=== PATIENT | male | born 1990 | race Caucasian/White ===

== ENCOUNTER 2016-07-23 21:56 | Emergency (ER) | payer BC ==
[2016-07-23 22:31] VITALS: BP 107/70; PULSE 70; RESP 14; TEMP 98.6; O2SAT 98
[2016-07-23] MEDS ORDERED: Albuterol 0.083% Inhal Sol (2.5 mg/3 mL) UD IH STA (23:09)
[2016-07-23] MEDS ORDERED: Sodium Chloride 0.9% 1,000 ML IV ONE (23:09)
[2016-07-23] MEDS ORDERED: Clindamycin 600mg/50ml D5W 600 MG/50 ML VIAL IVPB ONE (23:24)
[2016-07-23] MEDS ORDERED: Sodium Chloride 0.9% 1,000 ML ONE (23:24)
[2016-07-23] MEDS ORDERED: Albuterol 0.083% Inhal Sol (2.5 mg/3 mL) UD ONE (23:24)
[2016-07-23] MEDS ORDERED: Clindamycin 600mg/50ml D5W 600 MG/50 ML VIAL IVPB STA (23:25)
[2016-07-23 23:33] LABS: BASO # 0.1 K/uL (0.0-0.2); EOS # 0.5 K/uL (0.0-0.7); EOS % 4.2 % (0.0-4.0); HEMATOCRIT 41.8 % (35.0-51.0); LYMPH # 2.3 K/uL (1.0-4.3); LYMPH % 18.3 % (20.0-40.0); MEAN CORPUSCULAR HEMOGLOBIN 29.2 pg (27.0-31.0); MEAN CORPUSCULAR HGB CONC 33.6 g/dL (33.0-37.0); MEAN PLATELET VOLUME 8.4 fL (7.2-11.7); MONO % 7.9 % (0.0-10.0); RED CELL DISTRIBUTION WIDTH 13.2 % (11.5-14.5); WHITE BLOOD COUNT 12.5 K/uL (4.8-10.8)
--- NOTE | 2016-07-24 00:32 | C.PDOC ---
History Of Present Illness 26 year old patient presents to the ED complaining of pain and swelling to the right thigh for the past 3 days. Patient states there is a bump there. He tried to squeeze it, but the redness worsened. Patient denies any fever or vomiting. Time Seen by Provider: 07/23/16 22:39 Chief Complaint (Nursing): Abnormal Skin Integrity History Per: Patient History/Exam Limitations: no limitations Onset/Duration Of Symptoms: Days (3) Current Symptoms Are (Timing): Still Present Quality Of Symptoms: Painful, Draining Severity: Mild Pain Scale Rating Of: 3 Recent travel outside of the [place]: No Past Medical History Reviewed: Historical Data, Nursing Documentation, Vital Signs Vital Signs: Last Vital Signs Temp 98.6 F 07/23/16 22:26 Pulse 70 07/23/16 22:26 Resp 14 07/23/16 22:26 BP 107/70 07/23/16 22:26 Pulse Ox 98 07/24/16 02:39 - Medical History PMH: Asthma - [facility] Procedures INJECT/INFUSE NEC (06/07/13) NEBULIZER THERAPY (06/07/13) Family History: States: Unknown Family Hx - Social History Hx Alcohol Use: No Hx Substance Use: No - Immunization History Hx Tetanus Toxoid Vaccination: No Hx Influenza Vaccination: No Hx Pneumococcal Vaccination: No Review Of Systems Except As Marked, All Systems Reviewed And Found Negative. Constitutional: Negative for: Fever Gastrointestinal: Negative for: Vomiting Musculoskeletal: Positive for: Other (right thigh pain, swelling) Skin: Positive for: Other (erythema right thigh) Physical Exam - Physical Exam Appears: Non-toxic, No Acute Distress Skin: Warm, Dry Head: Atraumatic, Normacephalic Eye(s): bilateral: PERRL, EOMI Neck: Normal ROM, Supple Lymphatic: No Inguinal Node Tenderness Chest: Symmetrical Cardiovascular: Rhythm Regular Respiratory: No Accessory Muscle Use Back: Normal Inspection Extremity: Normal ROM, Other (right thigh: 1.5 cm active draining wound to the right lateral aspect with 25 cm of surrounding erythema) Neurological/Psych: Oriented x3, Normal Motor, Normal Sensation Gait: Steady ED Course And Treatment - Laboratory Results Result Diagrams: 07/23/16 23:28 07/23/16 23:28 O2 Sat by Pulse Oximetry: 98 (room air) Pulse Ox Interpretation: Normal Progress Note: Plan: -Labs. -Albuterol, Clindamycin, IV fluids. -reassess and disposition. Wound was drained and irrigated. erythema was also circled. Patient is advised to return if the redness worsens, or if fever develops and return for wound check in 2 days. Disposition - Disposition Disposition: HOME/ ROUTINE Disposition Time: 00:30 Condition: STABLE Additional Instructions: Area of redness is circled . Return to ER in 2 days for wound check or sooner if symptoms persist or worsen. 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 - Scribe Statement The provider has reviewed the documentation as recorded by the Scribe Cinthya Mendez All medical record entries made by the Scribe were at my direction and personally dictated by me. I have reviewed the chart and agree that the record accurately reflects my personal performance of the history, physical exam, medical decision making, and the department course for this patient. I have also personally directed, reviewed, and agree with the discharge instructions and disposition.
[2016-07-24 00:47] LABS: CHLORIDE 98 mmol/L (98-107)
[2016-07-24 00:48] LABS: POTASSIUM 4.3 mmol/L (3.6-5.2); SODIUM 139 mmol/L (132-148)
[2016-07-24 00:50] LABS: ALB/GLOB RATIO 1.2 (1.0-2.1); ALKALINE PHOSPHATASE 78 U/L (38-126); ALT/SGPT 63 U/L (21-72); AST/SGOT 44 U/L (17-59); BILIRUBIN,TOTAL 1.1 mg/dL (0.2-1.3); BLOOD UREA NITROGEN 14 mg/dL (9-20); CARBON DIOXIDE 29 mmol/L (22-30); GFR AFRICAN-AMERICAN > 60; GLUCOSE,RANDOM 100 mg/dL (75-110); TOTAL PROTEIN 8.2 g/dL (6.3-8.3)
== END 2016-07-24 01:14 | disposition home or self-care (01) ==
LOC: C.ER 21:56
DX: L03.115 Cellulitis of right lower limb (principal); L02.415 Cutaneous abscess of right lower limb
CPT/HCPCS: 80053; 85025; 94640; 96365; 99283; J7040